=== PATIENT | female | born 1965 | race Caucasian/White ===

== ENCOUNTER → 2018-03-29 14:24 | Outpatient (CLI) | payer OTHER, SELFPAY ==
--- NOTE | 2018-03-29 | DI.MRI.S_ITS ---
PROCEDURE: MR ANKLE LT WO CON INDICATIONS: Lateral left ankle pain and instability TECHNIQUE: Noncontrast sagittal T1 spin echo and T2 fast spin echo with fat saturation, axial proton density fast spin echo and T2 fast spin echo with fat saturation, coronal T1 spin echo and T2 fast spin echo with fat saturation through the ankle/hindfoot. COMPARISON: None. FINDINGS: Image quality: Excellent. Bones and joints: No bone marrow contusions or fractures. No hindfoot coalitions. No osteochondral injuries of the talar dome. There is small moderate fluid within tibiotalar joint, subtalar joint, talonavicular joint and calcaneocuboid joint. 1.6 x 1 x 0.8 cm cystic structure which dorsal aspect of talonavicular joint is seen, which may represent a small ganglion cyst in this area. Medial structures: Fluid distending the flexor tendon sheath is seen with mildly thickened the posterior tibial tendon and flexor hallucis longus tendon suggestive of tenosynovitis. No evidence of tendon tear. The posterior tibial neurovascular bundle appears normal within the tarsal tunnel, without extrinsic mass effect. The deep layer (anterior and posterior tibiotalar ligaments) and superficial layer (tibionavicular, tibiospring, and tibiocalcaneal ligaments) of the deltoid ligament appear normal. The spring ligament components (superomedial calcaneonavicular, medioplantar oblique calcaneonavicular, and inferoplantar longitudinal ligaments) are intact. Lateral structures: The anterior talofibular, calcaneofibular, and posterior talofibular ligaments appear intact. More superiorly, the anterior and posterior tibiofibular ligaments appear intact, as is the intermalleolar ligament. The tibiofibular syndesmosis is normal in width at 2 mm or less. Mild to moderate tenosynovitis involving the peroneus longus and brevis tendons also seen with no evidence of peroneus tendon tear. Adjacent bony peroneal tubercle and retrotrochlear prominence are normal in size. The sinus tarsi demonstrates normal fatty signal, without edema, fibrosis, or cyst formation. Visualized sinus tarsi components (cervical ligament, interosseous talocalcaneal ligament, roots of the inferior extensor retinaculum) appear normal. The calcaneonavicular and calcaneocuboid components of the bifurcate ligament appear intact. The dorsal calcaneocuboid ligament appears intact. Anterior structures: The tibialis anterior, extensor hallucis longus, and extensor digitorum longus tendons appear intact. The dorsal talonavicular ligament appears intact. Posterior and plantar structures: Achilles tendon is intact. Medial and lateral bands of the plantar fascia are of normal thickness. No abductor digiti quinti muscle atrophy to suggest Guerin neuropathy. IMPRESSION: 1. Small amount of joint effusion in the ankle and hindfoot joints. Suggestion of a 1.6 x 1 x 0.8 cm ganglion cyst adjacent to dorsal aspect of talonavicular joint. 2. Tenosynovitis involving the flexor tendons and peroneus tendons. No evidence of tendon tear. 3. Ankle ligaments are grossly intact. Dictated by: Basilio Alexander M.D. on 03/29/2018 at 15:49 Approved by: Basilio Alexander M.D. on 03/29/2018 at 16:42
== END ==
PROVIDERS: Visit Provider Family Medicine
DX: M25.572 Pain in left ankle and joints of left foot (principal); M25.472 Effusion, left ankle; M65.872 Other synovitis and tenosynovitis, left ankle and foot
CPT/HCPCS: 73721

== ENCOUNTER → 2019-02-20 15:49 | Outpatient (CLI) | payer OTHER, SELFPAY ==
--- NOTE | 2019-02-20 | DI.MRI.S_ITS ---
PROCEDURE: MRFOOT LT WO CON INDICATIONS: Poss plantar plate tear TECHNIQUE: Noncontrast sagittal T1 spin echo and T2 fast spin echo with fat saturation, long-axis T1 spin echo and T2 fast spin echo with fat saturation, short-axis T1 spin echo and T2 fast spin echo with fat saturation through the forefoot. COMPARISON: [facility] [place], CR, XR FOOT 3 VIEWS WEIGHT BEARING BILATERAL, 11/22/2018, 13:58. [facility] [place], CR, XR FOOT 3+ VIEWS LEFT, 07/27/2018, 9:32. [facility], MR, MR ANKLE LT WO CON, 03/29/2018, 14:42. FINDINGS: Image quality: Diagnostic. Bones and joints: Dorsal dislocation of the phalanges of the 2nd toe with respect to the metatarsal head of the 2nd toe is present. No definite fractures are identified. Marrow edema is noted involving the phalanges of the 2nd toe and the head of the 2nd metatarsal. There is slight marrow edema involving the head of the 3rd metatarsal without dislocation. Otherwise, the remainder of the osseous structures of the midfoot and forefoot are intact and otherwise unremarkable. No suspicious osseous lesions are identified. Soft tissues: Extensive subcutaneous edema is identified about the left midfoot and forefoot that is more pronounced overlying the dorsal aspect of the forefoot. No drainable or loculated fluid collections are identified. Areas of edema involving the intrinsic muscles of the forefoot are present at the level of the metatarsals. There is increased signal identified about the flexor tendons of the 2nd and 3rd toes and also involving the extensor tendons of the 2nd and 3rd toes. An injury of the plantar plate of the 2nd toe is suspected. The Lisfranc ligament is intact. No significant atrophy is appreciated involving the intrinsic muscles of the foot. IMPRESSION: 1. Dislocation of the 2nd metatarsal phalangeal joint with associated plantar plate injury. 2. Mild edema of the head of the 3rd metatarsal may represent bone contusion. There is no fracture. 2. Extensive soft tissue edema about the left forefoot. Dictated by: Cristino Gutierrez M.D. on 02/20/2019 at 16:07 Approved by: Cristino Gutierrez M.D. on 02/20/2019 at 16:22
--- NOTE | 2019-02-20 | DI.MRI.S_ITS ---
PROCEDURE: MR ANKLE LT WO CON INDICATIONS: Poss plantar plate tear TECHNIQUE: Noncontrast sagittal T1 spin echo and T2 fast spin echo with fat saturation, axial proton density fast spin echo and T2 fast spin echo with fat saturation, coronal T1 spin echo and T2 fast spin echo with fat saturation through the ankle/hindfoot. COMPARISON: [facility] [place], CR, XR FOOT 3 VIEWS WEIGHT BEARING BILATERAL, 11/22/2018, 13:58. [facility] [place], CR, XR FOOT 3+ VIEWS LEFT, 07/27/2018, 9:32. [facility], MR, MR ANKLE LT WO CON, 03/29/2018, 14:42. FINDINGS: Image quality: Diagnostic. Bones and joints: No acute fracture or dislocation is identified involving the osseous structures of the midfoot or forefoot. Ankle mortise is well-maintained. There are no osteochondral defects of the tibial plafond toward the talar dome. Mild degenerative changes of the tibiotalar joint are present. No significant joint effusions are present. Medial structures: The deltoid ligament and the spring ligament appear to be intact. The tibialis posterior tendon contains a moderate amount of fluid and demonstrates mild increased signal at the level of the navicular without significant pain. The flexor hallucis longus and flexor digitorum longus tendons are intact. There is prominence of the posterior tibial nerve through the region of the tarsal tunnel. Lateral structures: The anterior and posterior distal tibiofibular ligaments are intact. The anterior talofibular ligament is prominently thinned, but probably intact. Posterior talofibular ligament is intact. There is thickening and increased signal of the calcaneofibular ligament without a full-thickness tear evident. There is thickening and increased signal evident involving the peroneus longus tendon with a large amount of fluid contained within its corresponding tendon sheath. The peroneus brevis tendon is intact and otherwise unremarkable with the exception of medial subluxation at the level of the typical lateral malleolus. Anterior structures: The tibialis anterior, extensor hallucis longus, and extensor digitorum longus tendons appear intact. However, there is slight increased signal involving the anterior tibialis tendon. Posterior and plantar structures: Achilles tendon is intact. Medial and lateral bands of the plantar fascia are of normal thickness. Other: Prominent subcutaneous edema about the midfoot and hindfoot is present without a drainable or loculated fluid collection. IMPRESSION: 1. Mild degenerative changes of the tibiotalar joint. No fractures. 2. Mild tibialis posterior tendinopathy with corresponding mild tenosynovitis. 3. Full-thickness or near full-thickness tear of the anterior talofibular ligament. 4. Moderate peroneus longus tendinopathy with corresponding prominent tenosynovitis. 5. Possible mild tibialis anterior tendinopathy. 6. Extensive subcutaneous edema about the ankle. Dictated by: Cristino Gutierrez M.D. on 02/20/2019 at 16:28 Approved by: Cristino Gutierrez M.D. on 02/20/2019 at 16:33
== END ==
PROVIDERS: Family Provider Family Medicine; PCP Family Medicine; Visit Provider Podiatrist
DX: M79.675 Pain in left toe(s) (principal); S93.125A Dislocation of metatarsophalangeal joint of left lesser toe(s), initial encounter; S93.492A Sprain of other ligament of left ankle, initial encounter; M65.872 Other synovitis and tenosynovitis, left ankle and foot; M79.89 Other specified soft tissue disorders; R26.2 Difficulty in walking, not elsewhere classified
CPT/HCPCS: 73718; 73721

== ENCOUNTER → 2021-01-05 08:54 | Outpatient (CLI) | payer OTHER, SELFPAY ==
--- NOTE | 2021-01-05 | DI.MG.S_ITS ---
BILATERAL DIGITAL SCREENING MAMMOGRAM 3D/2D WITH CAD: 01/05/2021 CLINICAL: Routine screening. Family history of breast cancer. Comparison is made to exams dated: 06/08/2018 mammogram, 06/08/2017 mammogram, and 05/26/2016 mammogram - outside location. The tissue of both breasts is heterogeneously dense. This may lower the sensitivity of mammography. Current study was also evaluated with a Computer Aided Detection (CAD) system. There are benign calcifications in the right breast. No significant masses, calcifications, or other findings are seen in either breast. There has been no significant interval change. IMPRESSION: BENIGN There is no mammographic evidence of malignancy. A 1 year screening mammogram is recommended. This exam was interpreted at Station ID: [id number]. NOTE: For mammograms, a report in lay terms will be sent to the patient. Approximately 15% of breast malignancies will not be visualized mammographically. In the management of a palpable breast mass, a negative mammogram must not discourage biopsy of a clinically suspicious lesion. Electronically Signed By: Lalita saldana/rufus:01/05/2021 10:14:01 letter sent: Normal Exam ACR BI-RADS Category 2: Benign Finding(s) [id number]
== END ==
PROVIDERS: Family Provider Family Medicine; PCP Family Medicine; Referring Provider Family Medicine; Visit Provider Family Medicine
DX: Z12.31 Encounter for screening mammogram for malignant neoplasm of breast (principal); Z80.3 Family history of malignant neoplasm of breast
CPT/HCPCS: 77063; 77067

== ENCOUNTER → 2024-05-20 12:03 | Outpatient (CLI) | payer OTHER, SELFPAY ==
--- NOTE | 2024-05-20 12:04 | DI.US.S_ITS ---
LIMITED ULTRASOUND OF RIGHT BREAST AND AXILLA: 05/20/2024 CLINICAL: Patient returns today to evaluate a focal asymmetry in the right breast. Comparison is made to exams dated: 05/20/2024 mammogram - [facility], 01/18/2024 mammogram, 11/17/2022 mammogram - outside location, 01/05/2021 mammogram - [facility], 06/08/2018 mammogram, and 06/08/2017 mammogram - outside location. Real-time ultrasound of the right breast 9-11 o'clock, and axilla regions was performed. Coreas scale images of the real-time examination were reviewed. No significant abnormalities were seen sonographically in the right breast. Specifically, no finding to correspond to the patient's resolved screening mammographic abnormality. The tissue is heterogeneous. IMPRESSION: PROBABLY BENIGN No sonographic correlate to the resolved screening mammogram finding. A follow-up mammogram and possible ultrasound in 6 months is recommended to demonstrate stability. Findings and recommendations were conveyed to the patient at time of exam. This exam was interpreted at Station ID: [id number]. Electronically Signed By: Lalita saldana/:05/20/2024 13:32:03 letter sent: Followup Recommended ACR BI-RADS Category 3: Probably Benign
--- NOTE | 2024-05-20 12:04 | DI.MG.S_ITS ---
UNILATERAL RIGHT DIGITAL DIAGNOSTIC MAMMOGRAM 3D/2D: 05/20/2024 CLINICAL: Additional evaluation requested from prior study. Comparison is made to exams dated: 01/18/2024 mammogram, 11/17/2022 mammogram - outside location, and 01/05/2021 mammogram - [facility]. The breasts are heterogeneously dense, which may obscure small masses (category c / 51-75% glandular tissue). Prior questionable asymmetry/ mass on screening mammogram in the right breast in the middle depth in the upper outer quadrant is not reproduced with additional views or focal compression. No significant masses, calcifications, or other findings are seen in the breast. IMPRESSION: INCOMPLETE: NEED ADDITIONAL IMAGING EVALUATION Resolution of screening mammography abnormality with additional views. Ultrasound evaluation to confirm resolution is recommended and was performed immediately following this exam. Based on the Tyrer Cuzick model (a risk assessment model) the patient's lifetime risk is 14.2% and her 10 year risk is 5.3%. According to the ACR, ACS, and NCCN guidelines, an annual breast MRI exam along with mammogram is recommended if the patient's lifetime risk is 20% or greater. This exam was interpreted at Station ID: [id number]. NOTE: For mammograms, a report in lay terms will be sent to the patient. Approximately 15% of breast malignancies will not be visualized mammographically. In the management of a palpable breast mass, a negative mammogram must not discourage biopsy of a clinically suspicious lesion. Electronically Signed By: Lalita saldana/:05/20/2024 13:28:08 letter sent: Additional Imaging Needed ACR BI-RADS Category 0: Incomplete: Need Additional Imaging Evaluation
== END ==
PROVIDERS: Family Provider Family Medicine; PCP Family Medicine; Referring Provider Family Medicine; Visit Provider Family Medicine
DX: R92.8 Other abnormal and inconclusive findings on diagnostic imaging of breast (principal); R92.333 Mammographic heterogeneous density, bilateral breasts
CPT/HCPCS: 76642; 77065; G0279

== ENCOUNTER → 2024-12-18 10:12 | Outpatient (CLI) | payer OTHER, SELFPAY ==
--- NOTE | 2024-12-18 10:13 | DI.MG.S_ITS ---
MM diagnostic mammo BI: 12/18/2024. BI-RADS: 1 CLINICAL: 59-year old female for bilateral diagnostic mammogram that is a follow-up to ultrasound, right on 05/20/2024. Tyrer-Cuzick lifetime risk of 14.2%. No personal or first-degree family history of breast cancer. Current reported family history of breast cancer: maternal grandmother. PRIOR EXAMS 05/20/2024, 01/05/2021, Outside priors - 01/18/2024, 11/17/2022. MAMMOGRAPHY TECHNIQUE: 2D and 3D (tomosynthesis) digital mammographic views obtained, with additional images as needed for full coverage. Current study was also evaluated with a Computer Aided Detection (CAD) system. DENSITY C. The breasts are heterogeneously dense, which may obscure small masses. MAMMOGRAPHY FINDINGS Right: No suspicious mass, asymmetry, microcalcification, or other abnormality seen. Previously described focal asymmetry in the right breast, upper outer quadrant, did not persist on prior imaging. Left: No suspicious mass, asymmetry, microcalcification, or other abnormality seen. IMPRESSION: * No evidence of malignancy. RECOMMENDATIONS Bilateral * Annual screening mammography. COMMENTS: Findings and recommendations were conveyed to the patient during today's evaluation. OVERALL ASSESSMENT CATEGORY BI-RADS-1: Negative. The [employer] recommends annual screening mammography beginning at age 40 for women with average risk of breast cancer. ELECTRONICALLY SIGNED: Hina Garcia M.D. on 12/18/2024 at 12:11:06 PM PT Interpreting Station ID: [id number]
== END ==
LOC: MAMMO 10:12
PROVIDERS: Family Provider Family Medicine; PCP Family Medicine; Referring Provider Family Medicine; Visit Provider Family Medicine
DX: R92.8 Other abnormal and inconclusive findings on diagnostic imaging of breast (principal); R92.333 Mammographic heterogeneous density, bilateral breasts; Z80.3 Family history of malignant neoplasm of breast
CPT/HCPCS: 77066; G0279